=== PATIENT | male | born 1985 | race Caucasian/White ===

== ENCOUNTER 2022-09-02 08:31 | Emergency (ER) | payer OTHER ==
[~2022-09-02] VITALS: Ht 180.3 cm; Wt 81.0 kg
[2022-09-02 10:10] VITALS: BP 139/90
[2022-09-02] MEDS ORDERED: BENZ100C19 PO (10:33)
[2022-09-02] MEDS ORDERED: ONDA-144 PO (10:33)
[2022-09-02] MEDS ORDERED: LORA-483 GT (10:33)
[2022-09-02] MEDS ORDERED: TAMIFLU PO (10:33)
[2022-09-02] MEDS ORDERED: ACET-1158 PO (10:33)
== END 2022-09-02 10:39 | disposition home or self-care (01) ==
LOC: ER 08:31
DX: J10.1 Influenza due to other identified influenza virus with other respiratory manifestations (principal); Z20.822 Contact with and (suspected) exposure to COVID-19
CPT/HCPCS: 36415; 87426; 87804